=== PATIENT | female | born 1995 | race Caucasian/White ===

== ENCOUNTER → 2017-10-13 07:43 | Outpatient (CLI) | payer BC, MEDICAID, SELFPAY ==
--- NOTE | 2017-10-13 07:46 | US_ITS ---
US abdomen limited: HISTORY: ITS.REASON: UPPER ABD PAIN ORDERING PHYSICIAN: Temitope Fang PATIENT AGE: 22 years COMPARISON: FINDINGS: PANCREAS: Unremarkable. No obvious mass or abnormal fluid collection. No ductal dilatation LIVER: No focal liver lesions demonstrated. Homogeneous echogenicity. No intrahepatic biliary ductal dilatation evident RIGHT KIDNEY: Unremarkable. Normal size and echogenicity. No hydronephrosis GALLBLADDER: No gallstones, gallbladder wall thickening, pericholecystic fluid, or biliary dilatation. IMPRESSION: Negative gallbladder/right upper quadrant ultrasound
== END ==
PROVIDERS: Family Provider Family Medicine; PCP Family Medicine; Visit Provider Nurse Practitioner
DX: R10.9 Unspecified abdominal pain (principal)
CPT/HCPCS: 76705

== ENCOUNTER 2018-06-23 14:00 | Outpatient (RCR) | payer BC, MEDICAID, SELFPAY | END 2018-06-23 14:05 | disposition home or self-care (01) | LOC: PT 14:00 | PROVIDERS: Referring Provider Orthopaedic Surgery | DX: S72.012A Unspecified intracapsular fracture of left femur, initial encounter for closed fracture (principal) | CPT/HCPCS: 97010; 97014; 97016; 97110; 97112; 97163; 97597; G0283 ==

== ENCOUNTER → 2018-09-27 15:15 | Outpatient (CLI) | payer BC, MEDICAID, SELFPAY ==
[2018-09-27 16:24] LABS: Vancomycin,Trough 9.1 mcg/ml (10.0-20.0)
== END ==
PROVIDERS: Visit Provider Family Medicine
DX: Z48.89 Encounter for other specified surgical aftercare (principal); Z51.81 Encounter for therapeutic drug level monitoring
CPT/HCPCS: 80202

== ENCOUNTER → 2018-10-01 17:55 | Outpatient (CLI) | payer BC, MEDICAID, SELFPAY ==
[2018-10-01 18:18] LABS: Vancomycin,Trough 10.4 mcg/ml (10.0-20.0)
== END ==
PROVIDERS: Visit Provider Internal Medicine Infectious Disease
DX: Z48.89 Encounter for other specified surgical aftercare (principal); Z51.81 Encounter for therapeutic drug level monitoring
CPT/HCPCS: 80202

== ENCOUNTER → 2018-10-11 15:18 | Outpatient (CLI) | payer BC, MEDICAID, SELFPAY | PROVIDERS: PCP Internal Medicine Infectious Disease; Visit Provider Internal Medicine Infectious Disease | DX: Z51.81 Encounter for therapeutic drug level monitoring (principal) | CPT/HCPCS: 80202 ==

== ENCOUNTER → 2018-10-19 11:15 | Outpatient (CLI) | payer BC, MEDICAID, SELFPAY ==
[2018-10-19 12:08] LABS: Vancomycin,Trough 14.6 mcg/ml (10.0-20.0)
== END ==
PROVIDERS: Visit Provider Internal Medicine Infectious Disease
DX: Z48.89 Encounter for other specified surgical aftercare (principal); Z51.81 Encounter for therapeutic drug level monitoring
CPT/HCPCS: 80202

== ENCOUNTER → 2018-10-25 15:05 | Outpatient (CLI) | payer BC, MEDICAID, SELFPAY ==
[2018-10-25 15:39] LABS: Vancomycin,Trough 12.5 mcg/ml (10.0-20.0)
== END ==
PROVIDERS: Visit Provider Internal Medicine Infectious Disease
DX: Z48.89 Encounter for other specified surgical aftercare (principal); Z51.81 Encounter for therapeutic drug level monitoring
CPT/HCPCS: 80202

== ENCOUNTER 2019-01-04 08:30 | Outpatient (RCR) | payer BC, MEDICAID, SELFPAY | END 2019-01-04 08:35 | disposition home or self-care (01) | LOC: PT 08:30 | PROVIDERS: Visit Provider Orthopaedic Surgery Orthopaedic Trauma | DX: S72.90XA Unspecified fracture of unspecified femur, initial encounter for closed fracture (principal) | CPT/HCPCS: 97110; 97140; 97163 ==

== ENCOUNTER → 2020-08-09 12:17 | Outpatient (CLI) | payer BC, MEDICAID, SELFPAY ==
[2020-08-09 13:45] LABS: HCG,Quantitative 2327 mIU/ml (0-5.42)
== END ==
PROVIDERS: Visit Provider Obstetrics & Gynecology
DX: Z34.90 Encounter for supervision of normal pregnancy, unspecified, unspecified trimester (principal)
CPT/HCPCS: 36415; 84702

== ENCOUNTER → 2020-08-20 16:54 | Outpatient (CLI) | payer BC, MEDICAID, SELFPAY | PROVIDERS: Visit Provider Obstetrics & Gynecology | DX: Z34.90 Encounter for supervision of normal pregnancy, unspecified, unspecified trimester (principal) | CPT/HCPCS: 36415; 84702 ==

== ENCOUNTER → 2020-08-27 13:07 | Outpatient (CLI) | payer BC, MEDICAID, SELFPAY ==
--- NOTE | 2020-08-27 13:17 | US_ITS ---
PROCEDURE: US OB <= 14 WEEKS FETUS CLINICAL INDICATION: US OB Dates COMPARISON: US OBTV US OB transvaginal from 07/29/2018 FINDINGS: An intrauterine gestational sac is present with a pole with a crown-rump length of 1.45cm correlating to gestational age of 7weeks 6days. heart tones are present with an FHR of 153bpm. Yolk sac is noted. Right corpus luteum cyst noted at 2 cm. IMPRESSION: Live IUP at 7 weeks 6 days. Estimated due date by Ultrasound is 04/09/2021 Dictated by: Damaso Gooden MD 08/27/2020 15:28 Damaso Gooden MD in OV 08/27/2020 15:28
== END ==
PROVIDERS: PCP Internal Medicine Infectious Disease; Visit Provider Obstetrics & Gynecology
DX: O26.841 Uterine size-date discrepancy, first trimester (principal)
CPT/HCPCS: 76801

== ENCOUNTER → 2020-09-10 13:08 | Outpatient (CLI) | payer BC, MEDICAID, SELFPAY ==
[2020-09-10 14:31] LABS: Basophils % 0.3 % (0.1-2.0); Eosinophils # 0.1 K/mm3 (0.0-0.4); Eosinophils % 0.7 % (0.1-12.0); Hematocrit 38.4 % (37.0-47.0); Hemoglobin 12.7 g/dL (12.2-16.2); Lymphocytes # 1.5 K/mm3 (0.7-4.5); Lymphocytes % 14.4 % (10-50); Mean Corpuscular HGB Conc 33.1 g/dL (31.8-35.4); Mean Corpuscular Hemoglobin 30.8 pg (27.0-31.2); Mean Corpuscular Volume 92.9 fl (81-99); Mean Platelet Volume 8.2 fl (7.4-10.4); Monocytes # 0.3 K/mm3 (0.1-1.0); Monocytes % 3.2 % (1.7-9.3); Neutrophils # 8.7 K/mm3 (1.8-7.8); Neutrophils % 81.4 % (37.0-80.0); Platelet Count 320 K/mm3 (142-424); Red Blood Count 4.13 M/mm3 (4.20-5.40); Red Cell Distribution Width 12.6 % (11.5-17.5); White Blood Count 10.6 K/mm3 (4.8-10.8)
[2020-09-12 11:20] LABS: Hepatitis B Surface Antigen Negative (Negative); Hepatitis C Antibody >11.0 s/co ratio (0.0-0.9); Rubella Antibodies, IgG 2.05 index (Immune >0.99)
[2020-09-12 11:21] LABS: HIV Screen 4th Generation wRfx Non Reactive (Non Reactive)
[2020-09-12 12:36] LABS: Rapid Plasma Reagin Ab Titer Non Reactive (NonRea<1:1)
== END ==
PROVIDERS: Visit Provider Obstetrics & Gynecology
DX: Z34.90 Encounter for supervision of normal pregnancy, unspecified, unspecified trimester (principal)
CPT/HCPCS: 36415; 85025; 86592; 86703; 86762; 86850; 87340; 87380; G0432

== ENCOUNTER 2020-09-19 19:55 | Emergency (ER) | payer BC, MEDICAID, SELFPAY ==
[2020-09-19 20:27] VITALS: PULSE 65; RESP 18; O2SAT 98
[2020-09-19 20:34] VITALS: BP 0/0; PULSE 70; RESP 16; TEMP 36.8; O2SAT 98
--- NOTE | 2020-09-19 20:50 | HMH.EDUTC ---
[facility] [place] Disposition Clinical Impression: Upper respiratory infection Qualifiers: URI type: unspecified URI Qualified Code(s): J06.9 - Acute upper respiratory infection, unspecified Disposition: Home, Self-Care Condition on Discharge: Good Instructions: DI for Sinusitis-Child Additional Instructions: Drink plenty of fluids. Take tylenol or ibuprofen for pain or fever. Take the medications as directed. Follow up with your regular doctor. GO TO THE ER FOR ANY WORSENING SYMPTOMS Prescriptions: Brompheniramine/Pseudoephed/Dm [Bromfed Dm Cough Syrup] 5 ml PO Q6HP PRN #240 syrup PRN Reason: Cough Transmission Status: Received by [facility] Azithromycin [Z-Brandt 250mg Tab*] 250 mg PO UD DOSE PK #6 tab Transmission Status: Received by [facility] Referrals: Gavin Hoover MD [Primary Care Provider] - Time of Disposition: 20:51 Medical Decision Making - Medical Records Medical records reviewed: No: I reviewed the patient's medical records. - Jl Inquiry Pt receiving controlled substance: No Vital Signs: 09/19/20 20:27 09/19/20 20:34 Temperature 98.2 F Temperature Source Oral Pulse Rate 70 Pulse Rate [Right] 65 Respiratory Rate 18 16 Blood Pressure 0/0 L 02 Sat by Pulse Oximetry 98 Oxygen Delivery Method Room Air Room Air [facility] [place] HPI - General Stated complaint: Covid test Time Seen by Provider: 09/19/20 20:50 Mode of Arrival: Ambulatory Source of Information: Patient Limitations: No Limitations Description of Symptoms (Recalled from Triage Doc. by RN): runny nose and cough HEENT Symptoms (Recalled from RN notes): No Resp Symptoms (Recalled from RN notes): No Skin Symptoms (Recalled from RN notes): No MS Symptoms (Recalled from RN notes): No Functional Status (Recalled from RN notes): na - History of Present Illness Provider Complaint: She c/o nasal congestion and sinus congestion for the past 2 days. - Related Data Previous Rx's Medication Instructions Recorded ondansetron 4 mg disintegrating 4 mg PO Q4H PRN #30 tab 09/10/20 tablet vitamin-ferrous fumarate 1 tab PO DAILY #30 tab 09/10/20 28 mg iron-folic acid 800 mcg tablet Azithromycin [Z-Brandt 250mg Tab*] 250 mg PO UD DOSE PK #6 tab 09/19/20 Brompheniramine/Pseudoephed/Dm 5 ml PO Q6HP PRN #240 syrup 09/19/20 [Bromfed Dm Cough Syrup] Allergies Allergy/AdvReac Type Severity Reaction Status Date / Time lamotrigine [From Lamictal] Allergy Severe I-RASH Verified 09/10/20 11:04 ([facility]UTHANN[facility] SYNDROME) - Worker's Comp Is this a Worker's Comp case?: No H History - Hepatitis A Screen Drug use history?: No High risk sexual behaviors?: No History of sexually transmitted infection?: No Currently employed?: No Childcare worker?: No Do you have indoor plumbing?: Yes Do you have electricity?: Yes Attestation statement:: This patient has been screened for Hepatitis A risk factors. I have reviewed the patient's past medical history: Yes Laterality Cases: Bilateral: Tonsillectomy Amputation: No Fractures: Yes (compound fx RLE) Comment: left femur, bassam, X 3 - Social History Smoking Status: Current every day smoker # Packs/Day (cigarettes): 1 Alcohol Intake: never Substance Use Type: crack/cocaine, marijuana, IV drugs Occupational Status: unemployed Family Hx:: Diabetes, Heart Attack, Hypertension, Alcoholism ROS Obtained: Yes All systems reviewed & no additional complaints - Constitutional Constitutional: Denies chills, Denies fever(s) - Eyes Eyes: Denies eye discharge - ENT Ears, Nose, Mouth, and Throat: Reports as per HPI - Cardiovascular Cardiovascular: Denies chest pain - Respiratory Respiratory: Reports chest congestion, Reports cough, Denies dyspnea, Denies stridor, Denies wheezing Physical Exam - General General appearance: alert, in no apparent distress - Head Head exam: atraumatic, normocephalic, normal inspection - Eye Eye ex
== END 2020-09-19 20:54 | disposition home or self-care (01) ==
PROVIDERS: Emergency Provider Nurse Practitioner Family; PCP Family Medicine
DX: Z20.822 Contact with and (suspected) exposure to COVID-19 (principal); J06.9 Acute upper respiratory infection, unspecified; F17.210 Nicotine dependence, cigarettes, uncomplicated; F12.10 Cannabis abuse, uncomplicated; F15.10 Other stimulant abuse, uncomplicated; Z34.90 Encounter for supervision of normal pregnancy, unspecified, unspecified trimester
CPT/HCPCS: 99202; G0463; U0003

== ENCOUNTER → 2020-10-08 12:37 | Outpatient (CLI) | payer BC, MEDICAID, SELFPAY | PROVIDERS: Visit Provider Nurse Practitioner Family | DX: Z20.822 Contact with and (suspected) exposure to COVID-19 (principal) | CPT/HCPCS: U0003 ==

== ENCOUNTER 2021-04-17 17:50 | Emergency (ER) | payer BC, MEDICAID, SELFPAY ==
[2021-04-17 17:52] VITALS: BP 99/69; PULSE 125; RESP 18; TEMP 37.6; O2SAT 96; BMI 22.6
--- NOTE | 2021-04-17 18:05 | HMH.EDGENADL ---
ED Disposition Clinical Impression: Mastitis Disposition: Home, Self-Care Condition on Discharge: Good Additional Instructions: Continue to breast-feed and/or pump from your left breast. Cool compress for comfort. You may take Tylenol/Motrin as needed. Follow-up with your PCP or hardware assembler on Thursday to ensure you are improving. Referrals: Gavin Hoover MD [Primary Care Provider] - (Thursday) Time of Disposition: 18:10 - Critical Care Critical Care Time: No Attestation: On , the high probability of a clinically significant, sudden or life threatening deterioration of the following system(s) required my full and direct attention, intervention and personal management. The time I documented below is in addition to time spent performing reported procedures but includes the following listed in this critical care notation. Medical Decision Making - Medical Records Medical records reviewed: Yes: I reviewed the patient's medical records. - Jl Inquiry Pt receiving controlled substance: No Medical Decision Narrative: 26yo F evaluated for concerns for mastitis. Clinical exam is consistent with mastitis. Counseled patient to continue breast-feeding, apply cool compress. She can use Motrin and/or Tylenol for symptom relief. Encouraged to follow-up with PCP before the end of the week to ensure she is improving. General Adult HPI - General Stated complaint: possible mastitis L breast Time Seen by Provider: 04/17/21 18:06 Mode of Arrival: Ambulatory - History of Present Illness HPI narrative: 26yo F presents the emergency department with concern for mastitis of her left breast. Patient delivered approximately 1 month ago. She has been breast-feeding since delivery. Complains of erythema and pain. Notes that she has had a mild headache today as well as some cold chills but otherwise is in her usual state of health. Patient delivered vaginally. She reports her lochia continues to diminish. She denies any foul-smelling discharge. She denies any other systemic signs or symptoms of infection. - Related Data Previous Rx's Medication Instructions Recorded ondansetron 4 mg disintegrating 4 mg PO Q4H PRN #30 tab 09/10/20 tablet vitamin-ferrous fumarate 1 tab PO DAILY #30 tab 09/10/20 28 mg iron-folic acid 800 mcg tablet Allergies Allergy/AdvReac Type Severity Reaction Status Date / Time lamotrigine [From Lamictal] Allergy Severe I-RASH Verified 10/15/20 14:44 (CARMELLA RUTHANN'S SYNDROME) [facility] History - Hepatitis A Screen Drug use history?: No Attestation statement:: This patient has been screened for Hepatitis A risk factors. I have reviewed the patient's past medical history: Yes Medical History: Reports:: Depression Laterality Cases: Bilateral: Tonsillectomy Amputation: No Fractures: Yes (compound fx RLE) Comment: left femur, bassam, X 3 - Social History Smoking Status: Former smoker # Packs/Day (cigarettes): 1 Alcohol Intake: never Substance Use Type: crack/cocaine, marijuana, IV drugs Occupational Status: unemployed - Psychiatric History Pschychiatric History:: Reports:: Depression Family Hx:: Diabetes, Heart Attack, Hypertension, Alcoholism ROS Obtained: Yes All systems reviewed & no additional complaints - Integumentary/Breasts Skin/Breast: Reports as per HPI Physical Exam - General General appearance: alert, in no apparent distress - Head Head exam: atraumatic - Chest Chest inspection: Present: symmetric chest wall rise - Respiratory Respiratory exam: Absent: respiratory distress - Cardiovascular Cardiovascular exam: Present: regular rate, normal rhythm - Neurological Exam Neurological exam: Present: alert, oriented X3, CN II-XII intact, normal gait - Psychiatric Psychiatric exam: Present: normal affect, normal mood - Skin Skin exam: Present: warm, dry - Expanded Skin Exam Comment: Mild erythema of the upper inner quadrant. M
[2021-04-17 18:25] VITALS: BP 99/69; PULSE 125; RESP 18; TEMP 37.6; O2SAT 96
== END 2021-04-17 18:25 | disposition home or self-care (01) ==
LOC: ER 18:14
PROVIDERS: Emergency Provider Family Medicine; PCP Family Medicine
DX: N61.0 Mastitis without abscess (principal); F31.9 Bipolar disorder, unspecified
CPT/HCPCS: 99281

== ENCOUNTER 2021-09-26 14:38 | Emergency (ER) | payer BC, MEDICAID, SELFPAY ==
[2021-09-26 14:45] VITALS: BP 119/83; PULSE 101; RESP 18; TEMP 36.9; O2SAT 97; BMI 26.6
[2021-09-26 14:54] LABS: UTC Influenza A Antigen Positive (Negative)
[2021-09-26 14:55] LABS: UTC Influenza B Antigen Negative (Negative)
--- NOTE | 2021-09-26 15:06 | HMH.EDUTC ---
[facility] [place] Disposition Clinical Impression: Influenza Disposition: Home, Self-Care Condition on Discharge: Good Instructions: How to Avoid a Cold or Flu, Influenza, Ondansetron Additional Instructions: ? Too late to start Tamiflu. Most effective when started within 48 hours of symptoms onset ? Lots of rest ? Increase Fluids water, Gatorade, powerade, pedialyte,if /toddler/child ? Alternate Tylenol and / or ibuprofen as discussed for fever, aches, chills Follow up IMMEDIATELY with your family doctor for new or worsening Symptoms OR no noticeable improvement over the next 48-72 hours, 911 for difficulty or breathing ? You or your child area contagious until no fever, aches, chills for 24 hours with medication for symptoms ? Help Prevent the spread of influenza: ? Wash your hands often. Use soap and water. Wash your hands after you use the bathroom, change a child's diapers, or sneeze. Wash your hands before you prepare or eat food. Use gel hand cleanser that has 60% alcohol, when soap and water are not available. Do not touch your eyes, nose, or mouth unless you have washed your hands first. ? Cover your mouth when you sneeze or cough. Cough into a tissue or the bend of your arm. If you use a tissue, throw it away immediately and wash your hands. ? Clean shared items with a germ-killing grave cleaner. Clean table surfaces, doorknobs, and light switches. Do not share towels, silverware, and dishes with people who are sick. Wash bed sheets, towels, silverware, and dishes with soap and water. ? Wear a mask over your mouth and nose if you are sick. The face mask may help protect others from becoming infected with the flu. Wear the mask when in common areas of your home or if you seek care with a healthcare provider. ? Stay away from others if you are sick. Stay at home until 24 hours after your fever and symptoms are gone. Prescriptions: Ondansetron [Zofran 4mg ODT] 4 mg PO TIDP PRN #10 tab PRN Reason: Nausea Transmission Status: Pending to [facility] Referrals: Gavin Hoover MD [Primary Care Provider] - As needed Forms: Work/School Release Time of Disposition: 15:10 Medical Decision Making - Jl Inquiry Pt receiving controlled substance: No Jl was queried for this patient: No Vital Signs: 09/26/21 14:45 Temperature 98.4 F Temperature Source Oral Pulse Rate [Right Brachial] 101 H Respiratory Rate 18 Blood Pressure [Right Arm] 119/83 Blood Pressure Mean [Right Arm] 95 Blood Pressure Source [Right Arm] Automatic Cuff Blood Pressure Position [Right Arm] Sitting 02 Sat by Pulse Oximetry 97 Oxygen Delivery Method Room Air - Lab Data Lab results reviewed: Yes: I reviewed the patient's lab results. Lab Results 09/26/21 14:54: Influenza Type A Ag Positive A, Influenza Type B Ag Negative [facility] [place] HPI - General Stated complaint: fever,SOB,abd pains,vomiting,diarrhea Time Seen by Provider: 09/26/21 15:06 Mode of Arrival: Ambulatory Source of Information: Patient Limitations: No Limitations Description of Symptoms (Recalled from Triage Doc. by RN): PATIENT C/O COUGH, STOMACH ACHE, VOMITING, CHILLS AND SWEATS X 4 DAYS HEENT Symptoms (Recalled from RN notes): No Resp Symptoms (Recalled from RN notes): Yes Skin Symptoms (Recalled from RN notes): No MS Symptoms (Recalled from RN notes): No Functional Status (Recalled from RN notes): WNL - History of Present Illness Provider Complaint: Patient states that she has not felt well for about 4 days States that she has been having body aches, chills, N/V/D headache and over all not feeling well States that she feels like her bones are even cold and she cannot get warm so today when she was still feeling ill she came in - Related Data Previous Rx's Medication Instructions Recorded Ondansetron [Zofran 4mg ODT] 4 mg PO TIDP PRN #10 tab 09/26/21 Allergies Allergy/AdvReac Type Severity Reaction Status Date / Time lamotrigine [From Lamictal] Allergy Severe I
[2021-09-26 15:13] VITALS: BP 119/83; PULSE 101; RESP 18; TEMP 36.9; O2SAT 97
== END 2021-09-26 15:17 | disposition home or self-care (01) ==
PROVIDERS: Emergency Provider Nurse Practitioner; PCP Family Medicine
DX: J10.1 Influenza due to other identified influenza virus with other respiratory manifestations (principal)
CPT/HCPCS: 87804; 99212; G0463

== ENCOUNTER 2021-12-31 15:23 | Emergency (ER) | payer BC, MEDICAID, SELFPAY ==
--- NOTE | 2021-12-31 16:19 | HMH.EDUTC ---
[facility] [place] Disposition Clinical Impression: Viral syndrome, Exposure to COVID-19 virus Disposition: Home, Self-Care Condition on Discharge: Good Instructions: DI for Viral Syndrome, DI for COVID-19 (Suspected or Confirmed ), Preventing the Spread of Coronavirus Discharge Instructions Additional Instructions: Drink plenty of fluids. Take tylenol or ibuprofen for pain or fever. Take the medications as directed. Follow up with your regular doctor. GO TO THE ER FOR ANY WORSENING SYMPTOMS Quarantine until you know the results of your covid-19 test. Notify your school or workplace of your results and follow their instructions regarding return to work/school. Prescriptions: Brompheniramine/Pseudoephed/Dm [Bromfed Dm Cough Syrup] 5 ml PO Q6HP PRN #240 ml PRN Reason: Cough Transmission Status: Received by [facility] Ondansetron [Zofran 4mg ODT] 4 mg PO Q8HP PRN #12 tab PRN Reason: Nausea Transmission Status: Received by [facility] Azithromycin [Z-Brandt 250mg Tab*] 250 mg PO UD DOSE PK #6 tab Transmission Status: Received by [facility] Referrals: Gavin Hoover MD [Primary Care Provider] - Forms: Work/School Release Time of Disposition: 16:57 Medical Decision Making - Medical Records Medical records reviewed: No: I reviewed the patient's medical records. - Jl Inquiry Pt receiving controlled substance: No Vital Signs: 12/31/21 16:22 12/31/21 17:00 Temperature 98.3 F 98.3 F Temperature Source Oral Pulse Rate 80 Pulse Rate [Left] 80 Respiratory Rate 18 18 Blood Pressure 95/74 L Blood Pressure [Right Arm] 95/74 L Blood Pressure Mean [Right Arm] 81 02 Sat by Pulse Oximetry 100 - Lab Data Lab results reviewed: Yes: I reviewed the patient's lab results. Orders (Tests/Meds): ORDERS Category Date Time Status Covid-19 Nasal PCR ([facility]) Routine Lab 12/31/21 16:15 Received [facility] [place] HPI - General Stated complaint: cough,stomach Time Seen by Provider: 12/31/21 16:19 - History of Present Illness Provider Complaint: She c/o cough, sinus congestion, sore throat and low grade fever for the past 2 days. - Related Data Previous Rx's Medication Instructions Recorded Ondansetron [Zofran 4mg ODT] 4 mg PO TIDP PRN #10 tab 09/26/21 Azithromycin [Z-Brandt 250mg Tab*] 250 mg PO UD DOSE PK #6 tab 12/31/21 Brompheniramine/Pseudoephed/Dm 5 ml PO Q6HP PRN #240 ml 12/31/21 [Bromfed Dm Cough Syrup] Ondansetron [Zofran 4mg ODT] 4 mg PO Q8HP PRN #12 tab 12/31/21 Allergies Allergy/AdvReac Type Severity Reaction Status Date / Time lamotrigine [From Lamictal] Allergy Severe I-RASH Verified 12/31/21 16:24 (CARMELLA RUTHANN'[facility] SYNDROME) [facility] History - Hepatitis A Screen Attestation statement:: This patient has been screened for Hepatitis A risk factors. I have reviewed the patient's past medical history: Yes Medical History: Reports:: Depression Laterality Cases: Bilateral: Tonsillectomy Amputation: No Fractures: Yes (compound fx RLE) Comment: left femur, bassam, X 3 - Social History Smoking Status: Former smoker # Packs/Day (cigarettes): 1 Alcohol Intake: never Substance Use Type: crack/cocaine, marijuana, IV drugs Occupational Status: other - Psychiatric History Pschychiatric History:: Reports:: Depression Family Hx:: Diabetes, Heart Attack, Hypertension, Alcoholism ROS Obtained: Yes All systems reviewed & no additional complaints - Constitutional Constitutional: Reports as per HPI - Eyes Eyes: Denies eye discharge - ENT Ears, Nose, Mouth, and Throat: Reports as per HPI - Cardiovascular Cardiovascular: Denies chest pain - Respiratory Respiratory: Reports as per HPI Physical Exam - General General appearance: alert, in no apparent distress - Head Head exam: atraumatic, normocephalic, normal inspection - Eye Eye exam: Present: normal appearance, PERRL, EOMI - ENT ENT exam: Present: mucous m
[2021-12-31 16:22] VITALS: BP 95/74; PULSE 80; RESP 18; TEMP 36.8; O2SAT 100; BMI 27.4
[2021-12-31 17:00] VITALS: BP 95/74; PULSE 80; RESP 18; TEMP 36.8
== END 2021-12-31 17:01 | disposition home or self-care (01) ==
PROVIDERS: Emergency Provider Nurse Practitioner Family; PCP Family Medicine
DX: Z03.89 Encounter for observation for other suspected diseases and conditions ruled out; J02.9 Acute pharyngitis, unspecified; Z20.822 Contact with and (suspected) exposure to COVID-19; F32.A Depression, unspecified; Z88.8 Allergy status to other drugs, medicaments and biological substances; Z87.891 Personal history of nicotine dependence; Z82.49 Family history of ischemic heart disease and other diseases of the circulatory system; Z83.3 Family history of diabetes mellitus; Z81.1 Family history of alcohol abuse and dependence
CPT/HCPCS: 99213; C9803; G0463; U0003; U0005

== ENCOUNTER 2022-01-15 16:37 | Emergency (ER) | payer BC, MEDICAID, SELFPAY ==
[2022-01-15 16:51] VITALS: BP 102/72; PULSE 81; RESP 17; TEMP 36.9; O2SAT 98; BMI 25.9
--- NOTE | 2022-01-15 17:08 | HMH.EDUTC ---
[facility] [place] Clinical Impression: Encounter for laboratory testing for COVID-19 virus, Viral syndrome Disposition: Home, Self-Care Condition on Discharge: Good Instructions: DI for COVID-19 (Suspected or Confirmed ), Preventing the Spread of Coronavirus Discharge Instructions, DI for Fever (Symptom) -- Adult Additional Instructions: *Monitor Temp, Over the counter Motrin or Tylenol as directed/as needed Tylenol every 4 hours and Motrin every 6 hours (as long as your family doctor has told you that you can take it) for fever or pain. and straight to ER if unable to lower temp less than 101.0 after medication given *Warm salt water gargles may help to soothe the throat *Throat Lozenges *Warm fluids like tea with honey may help to soothe the throat *Sleep elevated *Humidifier/Vaporizer Follow up IMMEDIATELY for new or worsening symptoms or no Noticeable improvement over the next 48-72 hours. 911 for difficulty breathing or swallowing You were tested for today for COVID19 your test result should be back in the next 24-48 hours, you may check your Results on [facility] My Health Portal Make sure to take your Vitamins Vit. C Vit D and Zinc if you can take them Referrals: Gavin Hoover MD [Primary Care Provider] - As needed Forms: Work/School Release Medical Decision Making - Jl Inquiry Pt receiving controlled substance: No Jl was queried for this patient: No Vital Signs: 01/15/22 16:51 Temperature 98.4 F Temperature Source Oral Pulse Rate [Left] 81 Respiratory Rate 17 Blood Pressure [Right Arm] 102/72 L Blood Pressure Mean [Right Arm] 82 02 Sat by Pulse Oximetry 98 Orders (Tests/Meds): ORDERS Category Date Time Status Covid-19 Nasal PCR ([facility]) Routine Lab 01/15/22 16:28 Received [facility] [place] HPI - General Stated complaint: covid test, Time Seen by Provider: 01/15/22 17:08 Mode of Arrival: Ambulatory Source of Information: Patient Limitations: No Limitations Description of Symptoms (Recalled from Triage Doc. by RN): patient comes in for covid test. patient was exposed at work. symptoms include nausea, diarrhea, for two days. HEENT Symptoms (Recalled from RN notes): No Resp Symptoms (Recalled from RN notes): No Skin Symptoms (Recalled from RN notes): No MS Symptoms (Recalled from RN notes): No Functional Status (Recalled from RN notes): n/a - History of Present Illness Provider Complaint: Patient states that she wanted to get tested for COVID States that she was exposed at work and she hasnt felt well the last couple of days States that she has been having nausea, diarrhea and body aches - Related Data Previous Rx's Medication Instructions Recorded Ondansetron [Zofran 4mg ODT] 4 mg PO TIDP PRN #10 tab 09/26/21 Azithromycin [Z-Brandt 250mg Tab*] 250 mg PO UD DOSE PK #6 tab 12/31/21 Brompheniramine/Pseudoephed/Dm 5 ml PO Q6HP PRN #240 ml 12/31/21 [Bromfed Dm Cough Syrup] Ondansetron [Zofran 4mg ODT] 4 mg PO Q8HP PRN #12 tab 12/31/21 Allergies Allergy/AdvReac Type Severity Reaction Status Date / Time lamotrigine [From Lamictal] Allergy Severe I-RASH Verified 12/31/21 16:24 (CARMELLA RUTHANN'S SYNDROME) - Worker's Comp Is this a Worker's Comp case?: No [facility] History - Hepatitis A Screen Attestation statement:: This patient has been screened for Hepatitis A risk factors. I have reviewed the patient's past medical history: Yes Medical History: Reports:: Depression Laterality Cases: Bilateral: Tonsillectomy Amputation: No Fractures: Yes (compound fx RLE) Comment: left femur, bassam, X 3 - Social History Smoking Status: Former smoker # Packs/Day (cigarettes): 1 Alcohol Intake: never Substance Use Type: crack/cocaine, marijuana, IV drugs Occupational Status: other - Psychiatric History Pschychiatric History:: Reports:: Depression Family Hx:: Diabetes, Heart Attack, Hypertension, Alcoholism ROS Obtained: Yes All systems reviewed & no additional complai
[2022-01-15 17:25] VITALS: BP 102/72; PULSE 81; RESP 17; TEMP 36.9
== END 2022-01-15 17:26 | disposition home or self-care (01) ==
PROVIDERS: Emergency Provider Nurse Practitioner; PCP Family Medicine
DX: Z20.822 Contact with and (suspected) exposure to COVID-19 (principal); R11.0 Nausea; R19.7 Diarrhea, unspecified
CPT/HCPCS: 99212; C9803; G0463; U0003; U0005

== ENCOUNTER 2022-01-22 07:58 | Emergency (ER) | payer BC, MEDICAID, SELFPAY ==
[2022-01-22] VITALS (9 sets, daily range): BP systolic 100–124; BP diastolic 59–91; PULSE 57–84; RESP 16–18; TEMP 37.2; O2SAT 96–100; BMI 25.8
--- NOTE | 2022-01-22 08:04 | ECG_ITS ---
APPROVED REPORT Exam: Resting ECG HR:58 bpm ECG Measurements Heart Rate 58 AXES FL 174 P 55 QRSd 79 QRS 74 QT 387 T 44 QTc 383 Conclusion SINUS BRADYCARDIA BORDERLINE ECG UNCONFIRMED REPORT Electronically signed by : Arsen Villafana MD 01/22/2022 21:01:47
--- NOTE | 2022-01-22 08:06 | PC.NURSE ---
ER in room
--- NOTE | 2022-01-22 08:09 | XR_ITS ---
FINAL REPORT CLINICAL HISTORY: Syncope, SOA, CP @ sternum, tightness, cough x 2 days. FINDINGS: Two views of the chest were obtained. The heart size and pulmonary vascularity are within normal limits. The mediastinum is normal. No acute pulmonary abnormality is identified. There is no pneumothorax. The bony thorax is intact. IMPRESSION: No active cardiopulmonary disease. Reviewed, Interpreted and Dictated by Fer Diaz III, MD Transcribed by Harry Batres Authenticated and [facility]
--- NOTE | 2022-01-22 08:10 | PC.NURSE ---
IV established and blood sent to the lab
--- NOTE | 2022-01-22 08:15 | PC.NURSE ---
Orthostatic blood pressures done along with pulses
[2022-01-22 08:17] LABS: Basophils # 0.2 K/mm3 (0-0.2); Basophils % 3.5 % (0.1-2.0); Eosinophils # 0.3 K/mm3 (0.0-0.4); Eosinophils % 6.3 % (0.1-12.0); Hematocrit 47.3 % (37.0-47.0); Hemoglobin 14.8 g/dL (12.2-16.2); Lymphocytes # 1.6 K/mm3 (0.7-4.5); Lymphocytes % 31.7 % (10-50); Mean Corpuscular HGB Conc 31.4 g/dL (31.8-35.4); Mean Corpuscular Hemoglobin 30.3 pg (27.0-31.2); Mean Corpuscular Volume 96.7 fl (81-99); Monocytes # 0.6 K/mm3 (0.1-1.0); Neutrophils # 2.6 K/mm3 (1.8-7.8); Platelet Count 315 K/mm3 (142-424); Red Blood Count 4.89 M/mm3 (4.20-5.40); Red Cell Distribution Width 13.5 % (11.5-17.5); White Blood Count 5.1 K/mm3 (4.8-10.8)
--- NOTE | 2022-01-22 08:17 | PC.NURSE ---
pt ambulated to the restroom with no issue
[2022-01-22 08:21] LABS: Microscopic, Urine URINE MICROSCOPIC (MICROSCOPIC)
--- NOTE | 2022-01-22 08:22 | HMH.EDGENADL ---
ED Disposition Clinical Impression: COVID, Vasovagal syncope Disposition: Home, Self-Care Condition on Discharge: Good Instructions: DI for Syncope in Adults (Fainting), DI for Syncope in Children (Fainting) Referrals: Gavin Hoover MD [Primary Care Provider] - - Critical Care Critical Care Time: No Attestation: On 01/22/22, the high probability of a clinically significant, sudden or life threatening deterioration of the following system(s) required my full and direct attention, intervention and personal management. The time I documented below is in addition to time spent performing reported procedures but includes the following listed in this critical care notation. Medical Decision Making - Jl Inquiry Pt receiving controlled substance: No Vital Signs: 01/22/22 07:58 01/22/22 08:02 01/22/22 08:11 Temperature 98.9 F Temperature Source Oral Pulse Rate 81 84 Pulse Rate [Left Radial] 74 Pulse Rate [Orthostatic Lying Right] Pulse Rate [Orthostatic Standing] Respiratory Rate 18 Blood Pressure 124/90 107/76 L Blood Pressure [Orthostatic Lying Right Arm] Blood Pressure [Orthostatic Standing Right Arm] Blood Pressure [Right Arm] 124/90 Blood Pressure Mean 103 86 Blood Pressure Mean [Right Arm] 101 Blood Pressure Source [Right Arm] Automatic Cuff Blood Pressure Position [Right Arm] Sitting 02 Sat by Pulse Oximetry 97 99 98 Oxygen Delivery Method Room Air 01/22/22 08:12 01/22/22 08:14 01/22/22 08:30 Temperature Temperature Source Pulse Rate 81 68 Pulse Rate [Left Radial] Pulse Rate [Orthostatic Lying Right] 57 L Pulse Rate [Orthostatic Standing] 84 Respiratory Rate Blood Pressure 110/74 121/91 H Blood Pressure [Orthostatic Lying Right Arm] 107/76 L Blood Pressure [Orthostatic Standing Right Arm] 110/74 Blood Pressure [Right Arm] Blood Pressure Mean 81 100 Blood Pressure Mean [Right Arm] Blood Pressure Source [Right Arm] Blood Pressure Position [Right Arm] 02 Sat by Pulse Oximetry 97 96 Oxygen Delivery Method 01/22/22 08:51 01/22/22 09:07 Temperature Temperature Source Pulse Rate 62 62 Pulse Rate [Left Radial] Pulse Rate [Orthostatic Lying Right] Pulse Rate [Orthostatic Standing] Respiratory Rate 16 Blood Pressure 100/59 L 109/74 L Blood Pressure [Orthostatic Lying Right Arm] Blood Pressure [Orthostatic Standing Right Arm] Blood Pressure [Right Arm] Blood Pressure Mean 72 84 Blood Pressure Mean [Right Arm] Blood Pressure Source [Right Arm] Blood Pressure Position [Right Arm] 02 Sat by Pulse Oximetry 98 100 Oxygen Delivery Method - Lab Data Lab Results 01/22/22 08:09: WBC 5.1, RBC 4.89, Hgb 14.8, Hct 47.3 H, MCV 96.7, MCH 30.3, MCHC 31.4 L, RDW 13.5, Plt Count 315, MPV 9.0, Neut % (Auto) 51.0, Lymph % (Auto) 31.7, [place] % (Auto) 11.0 H, Eos % (Auto) 6.3, Baso % (Auto) 3.5 H, Neut # (Auto) 2.6, Lymph # (Auto) 1.6, [place] # (Auto) 0.6, Eos # (Auto) 0.3, Baso # (Auto) 0.2 01/22/22 08:09: Sodium 137, Potassium 3.6, Chloride 101, Carbon Dioxide 29, Anion Gap 10.6, BUN 10, Creatinine 0.80, Estimated Creat Clear 124, Estimated GFR 88, Est GFR ( Amer) 107, Glucose 83, Calcium 9.4, Total Bilirubin 0.3, AST 58 H, ALT 36, Alkaline Phosphatase 81, Troponin I < 0.01, Total Protein 7.3, Albumin 4.6, Globulin 2.7, Albumin/Globulin Ratio 1.7 01/22/22 08:09: Serum HCG, Qual Negative 01/22/22 08:16: Urine Color Yellow, Urine Appearance Clear, Urine pH 5.5, Ur Specific [place] >= 1.030, Urine Protein Negative, Urine Glucose (UA) Negative, Urine Ketones Negative, Urine Blood 2+, Urine Nitrate Negative, Urine Bilirubin 2+ A, Urine Urobilinogen 0.2, Ur Leukocyte Esterase Negative, Urine RBC None, Urine WBC 3-5, Ur Squamous Epith Cells 5-10, Urine Bacteria 1+ 01/22/22 08:18: SARS-CoV-2 (PCR) Detected A, Influenza A Untype (PCR) Not detected, Influenza Type B (PCR) Not detected Result diagrams: 01/22/22 08:09
--- NOTE | 2022-01-22 08:23 | PC.NURSE ---
covid swab obtained
[2022-01-22 08:25] LABS: Appearance,Urine CLEAR (Clear); Blood, Urine 2+ (Negative); Color,Urine YELLOW (Yellow); Glucose,Urine (UA) Negative (Negative); Ketones,Urine Negative (Negative); Leukocyte Esterase,Urine Negative (Negative); Nitrate,Urine Negative (Negative); PH,Urine 5.5 (5.0-8.5); Protein,Urine Negative (Negative); Specific Gravity, Urine >= 1.030 (1.005-1.030); Urobilinogen,Urine 0.2 EU/dl (0.2)
[2022-01-22 08:26] LABS: Chloride 101 mmol/L (98-107); Potassium 3.6 mmoL/L (3.5-5.1); Sodium 137 mmol/L (136-145)
[2022-01-22 08:28] LABS: Bilirubin,Urine 2+ (Negative)
--- NOTE | 2022-01-22 08:28 | PC.NURSE ---
notified rad of cxr, spoke with coby
[2022-01-22 08:29] LABS: Alanine Aminotransferase 36 U/L (12-78); Albumin Level 4.6 g/dl (3.5-5.0); Albumin/Globulin Ratio 1.7 (1.1-1.8); Alkaline Phosphatase 81 U/L (38-126); Anion Gap 10.6 mEq/L (5-15); Aspartate Amino Transferase 58 U/L (14-36); Bilirubin,Total 0.3 mg/dl (0.2-1.3); Blood Urea Nitrogen 10 mg/dl (7-17); Carbon Dioxide 29 mmol/L (22.0-30.0); Creatinine Clearance Estimated 124 mL/min (50-200); Estimated Glomerular Filt Rate 88 ml/min (>60); GFR (African American) 107 ML/MIN (>60); Globulin 2.7 g/dL (1.3-3.2); Total Protein,Serum 7.3 g/dl (6.3-8.2)
[2022-01-22 08:30] LABS: Influenza A, PCR Not Detected (NotDetected); Influenza B, PCR Not Detected (NotDetected)
[2022-01-22 08:30] LABS: Calcium 9.4 mg/dl (8.4-10.2); Glucose 83 mg/dl (74-100)
[2022-01-22 08:34] LABS: HCG Qualitative, Serum Negative (Negative)
--- NOTE | 2022-01-22 08:34 | PC.NURSE ---
pt given blanket with no other needs at this time
--- NOTE | 2022-01-22 08:36 | PC.NURSE ---
pt to radiology
--- NOTE | 2022-01-22 08:36 | PC.NURSE ---
pt to xr
[2022-01-22 08:37] LABS: Bacteria,Urine 1+ /lpf
--- NOTE | 2022-01-22 08:43 | PC.NURSE ---
pt returned from xr
[2022-01-22 08:44] LABS: Troponin I < 0.01 ng/ml (0.00-0.034)
[2022-01-22 09:01] LABS: Coronavirus 19, PCR Detected (NotDetected)
--- NOTE | 2022-01-22 09:26 | PC.NURSE ---
pt awaiting fluids to be finished for d/c
== END 2022-01-22 09:56 | disposition home or self-care (01) ==
PROVIDERS: Emergency Provider Student in an Organized Health Care Education/Training Program; PCP Family Medicine
DX: U07.1 COVID-19 (principal); R55 Syncope and collapse
CPT/HCPCS: 71046; 80053; 81001; 84484; 84703; 85025; 93005; 96360; 99284; C9803; U0003; U0005

== ENCOUNTER 2022-05-21 16:31 | Emergency (ER) | payer BC, SELFPAY ==
[2022-05-21 17:41] LABS: UTC Influenza A Antigen Negative (Negative)
[2022-05-21 17:42] LABS: UTC Influenza B Antigen Negative (Negative)
[2022-05-21 17:50] VITALS: BP 117/78; PULSE 109; RESP 19; TEMP 36.6; O2SAT 98; BMI 22.2
--- NOTE | 2022-05-21 18:06 | EXP.UTC ---
Discharge Plan Disposition Patient Disposition: Home, Self-Care Condition: Good Prescriptions Prescriptions: New ondansetron 4 mg tablet,disintegrating 4 mg PO Q8H PRN (Reason: nausea and vomiting) Qty: 10 0RF No Action ondansetron 4 MG tablet,disintegrating 4 mg PO TIDP PRN (Reason: Nausea) Qty: 10 0RF ondansetron 4 MG tablet,disintegrating 4 mg PO Q8HP PRN (Reason: Nausea) Qty: 12 0RF azithromycin 250 MG tablet 250 mg PO UD DOSE PK Qty: 6 0RF Rx Instructions: Take two (2) tablets today, then one (1) tablet days #2 thru #5 jgjmyplxxvdsldf-vdsfzozvo-FF 118 ML syrup 5 ml PO Q6HP PRN (Reason: Cough) Qty: 240 0RF Referrals Follow up/Referrals: Gavin Hoover MD [Primary Care Provider] - See instructions Activity Restrictions/Add. Instructions Additional Instructions/Restrictions: Drink extra fluids with and between meals. If you have difficulty drinking, try very small amounts of water or suck on ice chips. ? Avoid fruit juices, as these do not replace minerals and can actually increase diarrhea. ? Children and adults can use sports drinks to replenish electrolytes. Younger children and infants should use products formulated for children, like oral rehydration solutions. ? Eat food in small amounts and let your stomach recover. ? Get lots of rest. You may feel tired or weak. ? No greasy or fried foods for the next 24-48 hours BRAT diet Bananas Rice Apples and [place] ? Make sure to drink plenty of liquids ? Return if needed ? Straight to ER if any life threatening symptoms ? Zofran as prescribed ? Follow up with family doctor in the next 48-72 hours if no improvement or any worsening of symptoms Clinical Impressions Clinical Impression: Gastroenteritis Stand Alone Forms Stand Alone Forms: Work/School Release Instructions Patient Instructions: DI for Nausea -- Adult, Nausea and Vomiting-Adult Discharge ED Provider: Sue Roberts [facility] [place] General Stated complaint: sore throat,V&D Mode of Arrival: Ambulatory Source of Information: Patient Limitations: No Limitations Time Seen by Provider: 05/21/22 18:06 Description of Symptoms (Recalled from Triage Doc. by RN): PATIENT C/O NAUSEA, VOMITING, COUGH AND CONGESTION HEENT Symptoms (Recalled from RN notes): No Resp Symptoms (Recalled from RN notes): Yes Skin Symptoms (Recalled from RN notes): No MS Symptoms (Recalled from RN notes): No Functional Status (Recalled from RN notes): WNL History of Present Illness Provider Complaint: Patient states that she thinks she has a virus states that has been feeling achy and having body aches and chills and N/V State that she took her last zofran that she had at home and hasnt had anything for the nausea States that this evening she was still having nausea and worried that she may have the flu so she came in States that she wasnt able to work so she came in Related Data Previous Rx's Medication Instructions Recorded ondansetron 4 mg disintegrating 4 mg PO TIDP PRN Nausea #10 tabs 09/26/21 tablet azithromycin 250 mg tablet 250 mg PO UD DOSE PK #6 tabs 12/31/21 zztalyfyhqzthwo-zhadyrxquencdzy-KE 5 ml PO Q6HP PRN Cough #240 mL 12/31/21 2 mg-30 mg-10 mg/5 mL oral syrup ondansetron 4 mg disintegrating 4 mg PO Q8HP PRN Nausea #12 tabs 12/31/21 tablet ondansetron 4 mg disintegrating 4 mg PO Q8H PRN nausea and 05/21/22 tablet vomiting #10 tabs Allergies Allergy/AdvReac Type Severity Reaction Status Date / Time lamotrigine [From Lamictal] Allergy Severe I-RASH 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 Medical History (Updated 05/21/22 @ 18:13 by Sue Roberts APRN) Anxie
[2022-05-21 18:10] VITALS: BP 117/78; PULSE 109; RESP 19; TEMP 36.6; O2SAT 98
== END 2022-05-21 18:20 | disposition home or self-care (01) ==
PROVIDERS: Emergency Provider Nurse Practitioner; PCP Family Medicine
DX: K52.9 Noninfective gastroenteritis and colitis, unspecified (principal)
CPT/HCPCS: 87804; 99212; G0463

== ENCOUNTER 2022-06-17 11:15 | Emergency (ER) | payer BC, SELFPAY ==
--- NOTE | 2022-06-17 12:45 | EXP.UTC ---
Discharge Plan Disposition Patient Disposition: Home, Self-Care Condition: Good Prescriptions Prescriptions: New PNV no.089-wojx-nweym acid 28 mg iron- 800 mcg tablet 1 tab PO DAILY 30 Days Qty: 30 5RF No Action ondansetron 4 MG tablet,disintegrating 4 mg PO TIDP PRN (Reason: Nausea) Qty: 10 0RF ondansetron 4 MG tablet,disintegrating 4 mg PO Q8HP PRN (Reason: Nausea) Qty: 12 0RF azithromycin 250 MG tablet 250 mg PO UD DOSE PK Qty: 6 0RF Rx Instructions: Take two (2) tablets today, then one (1) tablet days #2 thru #5 pvysyrfovsxxebq-lfvatzjbj-IX 118 ML syrup 5 ml PO Q6HP PRN (Reason: Cough) Qty: 240 0RF ondansetron 4 mg tablet,disintegrating 4 mg PO Q8H PRN (Reason: nausea and vomiting) Qty: 10 0RF Referrals Follow up/Referrals: Gavin Hoover MD [Primary Care Provider] - See instructions Activity Restrictions/Add. Instructions Additional Instructions/Restrictions: Drink plenty of fluids. Take vitamins. I sent in a prescription, but you could buy them otc also. 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 GO TO THE ER FOR ANY WORSENING SYMPTOMS Clinical Impressions Clinical Impression: Stand Alone Forms Stand Alone Forms: Work/School Release Discharge ED Provider: Vineet Martinez [facility] General Stated complaint: Lightheaded, nausea Time Seen by Provider: 06/17/22 12:45 History of Present Illness Provider Complaint: She states that for the past 2 days she has had light headedness at time. She denies other complaints. Her period is 3 weeks late also. Related Data Previous Rx's Medication Instructions Recorded ondansetron 4 mg disintegrating 4 mg PO TIDP PRN Nausea #10 tabs 09/26/21 tablet azithromycin 250 mg tablet 250 mg PO UD DOSE PK #6 tabs 12/31/21 cjofedboxcffibs-rvcznzyvzlxrysw-HG 5 ml PO Q6HP PRN Cough #240 mL 12/31/21 2 mg-30 mg-10 mg/5 mL oral syrup ondansetron 4 mg disintegrating 4 mg PO Q8HP PRN Nausea #12 tabs 12/31/21 tablet ondansetron 4 mg disintegrating 4 mg PO Q8H PRN nausea and 05/21/22 tablet vomiting #10 tabs vitamins no.121-iron 28 1 tab PO DAILY 30 days #30 tabs 06/17/22 mg-folic acid 800 mcg tablet Allergies Allergy/AdvReac Type Severity Reaction Status Date / Time lamotrigine [From Lamictal] Allergy Severe I-RASH Verified 06/17/22 12:57 (CARMELLA RUTHANN'S SYNDROME) [facility] Disclaimer: The information contained in this section may have been updated after the patient was seen, as this information can be updated by other users. Medical History Anxiety Depression History of anemia Social History Smoking Status: Former smoker alcohol intake: never substance use type: marijuana, crack/cocaine and IV drugs current occupational status: other Travel in the last 8 weeks: None ROS Obtained: Yes All systems reviewed & no additional complaints except as documented Constitutional Constitutional: Denies chills and Denies fever(s) Eyes Eyes: Denies eye discharge ENT Ears, Nose, Mouth, and Throat: Reports dizziness, Denies otalgia and Denies sore throat Cardiovascular Cardiovascular: Denies chest pain Respiratory Respiratory: Denies shortness of breath, Denies chest congestion, Denies cough, Denies stridor and Denies wheezing Gastrointestinal Gastrointestingal: Denies nausea or vomiting Musculoskeletal Musculoskeletal: Reports system reviewed and no additional complaints, except as documented and Denies arthralgias Integumentary/Breasts Skin/Breast: Denies rash Neurologic Neurologic: Reports dizziness and Denies paresthesias Allergic/Immunologic Allergic/Immunologic: Denies wheezing Physical Exam General General appearance: alert and in no apparent distress Head Head exam: atraumatic, normocephalic and normal inspection Eye Eye exam: Pres
[2022-06-17 12:48] LABS: UTC Pregnancy Test, Urine Positive (Negative)
[2022-06-17 12:53] VITALS: BP 124/86; PULSE 72; RESP 19; TEMP 36.8; O2SAT 99; BMI 26.2
[2022-06-17 13:35] VITALS: BP 124/86; PULSE 72; RESP 19; TEMP 36.8
== END 2022-06-17 13:36 | disposition home or self-care (01) ==
LOC: ER 11:34 → UTC 11:34
PROVIDERS: Emergency Provider Nurse Practitioner Family; PCP Family Medicine
DX: R11.0 Nausea (principal); O26.91 Pregnancy related conditions, unspecified, first trimester
CPT/HCPCS: 81025; 99212; G0463

== ENCOUNTER 2022-07-05 13:21 | Emergency (ER) | payer BC, SELFPAY ==
--- NOTE | 2022-07-05 15:07 | PC.NURSE ---
pt was waiting to be seen by ed provider, pt was awaiting for room. registration called back to nurses station to let nurse know that pt was leaving without being seen.
[2022-07-05 15:08] VITALS: BP 0/0; PULSE 0; RESP 0; TEMP -17.7; TEMP 0
== END 2022-07-05 15:10 | disposition left against medical advice (07) ==
LOC: ER 14:09
PROVIDERS: Emergency Provider Emergency Medicine; PCP Family Medicine
DX: R10.9 Unspecified abdominal pain (principal)
CPT/HCPCS: 99211

== ENCOUNTER 2022-07-08 08:11 | Emergency (ER) | payer BC, SELFPAY ==
[2022-07-08 08:15] VITALS: BP 100/63; PULSE 73; RESP 20; TEMP 36.8; O2SAT 96; BMI 22.6
[2022-07-08 08:20] VITALS: BMI 22.6
--- NOTE | 2022-07-08 08:27 | US_ITS ---
FINAL REPORT CLINICAL HISTORY: pain, bleeding, LMP 6wk ago FINDINGS: PELVIC ULTRASOUND The uterus is anteverted and anteflexed. A gestational sac is present in the endometrial cavity. A pole is present measuring 18.4 mm corresponding to a gestation of 8 weeks 3 days. Cardiac activity is confirmed with a heart rate of 172 beats per minute. There is normal decidual reaction. The cervix is closed. Left ovary measures 3.7 x 5.4 x 3.0 cm. There is a 3.3 cm cyst with internal echoes in the left ovary that is likely a hemorrhagic corpus luteal cyst. The right ovary measures 1.6 x 2.9 x 1.7 cm and is unremarkable. There is blood flow demonstrated to both ovaries. IMPRESSION: Single intrauterine gestation of 8 weeks 3 days. Left ovarian cyst likely a hemorrhagic corpus luteal cyst. Reviewed, Interpreted and Dictated by Ene Reilly MD Transcribed by Harry Batres Authenticated and [facility]
[2022-07-08 08:29] LABS: Urine Pregnancy, HCG Qual. Positive (Negative)
[2022-07-08 08:32] LABS: Appearance,Urine SL CLOUDY (Clear); Bilirubin,Urine Negative (Negative); Blood, Urine 2+ (Negative); Color,Urine YELLOW (Yellow); Glucose,Urine (UA) Negative (Negative); Ketones,Urine Negative (Negative); Leukocyte Esterase,Urine 2+ (Negative); Microscopic, Urine URINE MICROSCOPIC (MICROSCOPIC); Nitrate,Urine Negative (Negative); Protein,Urine Negative (Negative); Urobilinogen,Urine 0.2 EU/dl (0.2)
[2022-07-08 08:52] LABS: Basophils % 0.7 % (0.1-2.0); Eosinophils # 0.3 K/mm3 (0.0-0.4); Hematocrit 35.8 % (37.0-47.0); Lymphocytes # 1.4 K/mm3 (0.7-4.5); Lymphocytes % 21.4 % (10-50); Mean Corpuscular HGB Conc 33.5 g/dL (31.8-35.4); Mean Corpuscular Hemoglobin 30.4 pg (27.0-31.2); Mean Corpuscular Volume 90.5 fl (81-99); Mean Platelet Volume 8.2 fl (7.4-10.4); Monocytes # 0.3 K/mm3 (0.1-1.0); Monocytes % 5.2 % (1.7-9.3); Neutrophils # 4.5 K/mm3 (1.8-7.8); Neutrophils % 68.8 % (37.0-80.0); Platelet Count 346 K/mm3 (142-424); Red Blood Count 3.95 M/mm3 (4.20-5.40); Red Cell Distribution Width 13.4 % (11.5-17.5); White Blood Count 6.5 K/mm3 (4.8-10.8)
[2022-07-08 08:58] LABS: Bacteria,Urine 1+ /lpf; RBC,Urine Occasional #/hpf (0-3)
[2022-07-08 09:02] LABS: Chloride 104 mmol/L (98-107); Sodium 136 mmol/L (136-145)
--- NOTE | 2022-07-08 09:02 | HMH.EDGENADL ---
Discharge Plan Disposition Patient Disposition: Home, Self-Care Condition: Good Prescriptions Prescriptions: New nitrofurantoin macrocrystal 100 mg capsule 100 mg PO BID 7 Days Qty: 14 0RF Rx Instructions: must administer with a meal/food prenat.vits,ignacia,dju-zmhp-vgqlq Tablet 1 tab PO DAILY Qty: 30 1RF No Action ondansetron 4 MG tablet,disintegrating 4 mg PO TIDP PRN (Reason: Nausea) Qty: 10 0RF ondansetron 4 MG tablet,disintegrating 4 mg PO Q8HP PRN (Reason: Nausea) Qty: 12 0RF azithromycin 250 MG tablet 250 mg PO UD DOSE PK Qty: 6 0RF Rx Instructions: Take two (2) tablets today, then one (1) tablet days #2 thru #5 ioecqgocpihbsli-mnxodzxlp-JP 118 ML syrup 5 ml PO Q6HP PRN (Reason: Cough) Qty: 240 0RF ondansetron 4 mg tablet,disintegrating 4 mg PO Q8H PRN (Reason: nausea and vomiting) Qty: 10 0RF PNV no.074-fvwh-zsiia acid 28 mg iron- 800 mcg tablet 1 tab PO DAILY 30 Days Qty: 30 5RF Referrals Follow up/Referrals: Gavin Hoover MD [Primary Care Provider] - See instructions Activity Restrictions/Add. Instructions Additional Instructions/Restrictions: You were evaluated in the emergency department today for vaginal bleeding affecting early . 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 Return to the emergency department for any new or worsening symptoms. Clinical Impressions Clinical Impression: Intrauterine , Vaginal bleeding affecting early , Cystitis Instructions Patient Instructions: DI for -- Discomforts and Remedies, DI for Vaginal Bleeding During , DI for Abdominal Pain -- Early Discharge ED Provider: Grace Villarreal General Adult HPI General Chief complaint: Abdominal Pain Stated complaint: approx 1 month , spotting and cramping Time Seen by Provider: 07/08/22 08:21 History of Present Illness HPI narrative: This patient is a 27-year-old G3, P2 presented to the emergency department for evaluation with concern for lower abdominal cramping/pain and vaginal bleeding that started today. Patient reports that she had her last menstrual period at the end of April, and she had multiple positive test around [place]. She states she has not followed up with anyone up to this point and has had no ultrasound. She states that she thought that she had a UTI and had some urinary symptoms over the last few days, but the vaginal bleeding is new. She describes it as light and being less than a period. She states that there is a very small amount on her underwear when she were to the bathroom and there was some bright red blood present when she wiped. She denies any fevers, chills, or other concerns. Related Data Previous Rx's Medication Instructions Recorded ondansetron 4 mg disintegrating 4 mg PO TIDP PRN Nausea #10 tabs 09/26/21 tablet azithromycin 250 mg tablet 250 mg PO UD DOSE PK #6 tabs 12/31/21 mztpqpoieddkevp-izlscaakwfiaugt-ZM 5 ml PO Q6HP PRN Cough #240 mL 12/31/21 2 mg-30 mg-10 mg/5 mL oral syrup ondansetron 4 mg disintegrating 4 mg PO Q8HP PRN Nausea #12 tabs 12/31/21 tablet ondansetron 4 mg disintegrating 4 mg PO Q8H PRN nausea and 05/21/22 tablet vomiting #10 tabs vitamins no.121-iron 28 1 tab PO DAILY 30 days #30 tabs 06/17/22 mg-folic acid 800 mcg tablet nitrofurantoin macrocrystal 100 mg 100 mg PO BID 7 days #14 caps 07/08/22 capsule prenat.vits,ignacia,zzi-anrj-sxbkf 1 tab PO DAILY #30 tabs 07/08/22 Allergies Allergy/AdvReac Type Severity Reaction Status Date / Time lamotrigine [From Lamictal] Allergy Severe I-RASH Verified 06/17/22 12:57 (CARMELLA RUTHANN'S SYNDROME) [facility] Disclaimer: The information contained in this section may have been updated after the patient was seen, as this informat
[2022-07-08 09:04] LABS: Blood Urea Nitrogen 9 mg/dl (7-17); Creatinine Clearance Estimated 144 mL/min (50-200); Estimated Glomerular Filt Rate 122 ml/min (>60); GFR (African American) 147 ML/MIN (>60)
[2022-07-08 09:05] LABS: Alanine Aminotransferase 13 U/L (12-78); Albumin Level 4.1 g/dl (3.5-5.0); Albumin/Globulin Ratio 1.4 (1.1-1.8); Alkaline Phosphatase 50 U/L (38-126); Aspartate Amino Transferase 24 U/L (14-36); Bilirubin,Total 0.4 mg/dl (0.2-1.3); Calcium 8.8 mg/dl (8.4-10.2); Carbon Dioxide 24 mmol/L (22.0-30.0); Glucose 73 mg/dl (74-100); Total Protein,Serum 7.1 g/dl (6.3-8.2)
--- NOTE | 2022-07-08 09:36 | PC.NURSE ---
pt back from [place]
[2022-07-08 09:52] LABS: HCG,Quantitative 99082 mIU/ml (0-5.42)
[2022-07-08 10:06] VITALS: BP 100/61; PULSE 90; RESP 18; O2SAT 99
[2022-07-08 10:34] VITALS: BP 110/70; PULSE 87; RESP 20; TEMP 36.8; O2SAT 98
== END 2022-07-08 10:53 | disposition home or self-care (01) ==
PROVIDERS: Emergency Provider Emergency Medicine; PCP Family Medicine
DX: O46.8X1 Other antepartum hemorrhage, first trimester (principal); O23.591 Infection of other part of genital tract in pregnancy, first trimester; N10 Acute pyelonephritis; Z3A.08 8 weeks gestation of pregnancy
CPT/HCPCS: 36415; 76817; 80053; 81001; 81025; 84702; 85025; 86850; 87086; 99285

== ENCOUNTER 2022-07-28 09:01 | Emergency (ER) | payer BC, SELFPAY ==
[2022-07-28 09:40] VITALS: BP 117/65; PULSE 76; RESP 20; TEMP 36.8; O2SAT 100; BMI 22.6
--- NOTE | 2022-07-28 09:51 | EXP.UTC ---
Discharge Plan Disposition Patient Disposition: Home, Self-Care Condition: Good Prescriptions Prescriptions: New promethazine 25 mg Tablet 25 mg PO Q6H PRN (Reason: Nausea And Vomiting) Qty: 30 0RF No Action prenat.vits,ignacia,laf-wcrb-bapdv Tablet 1 tab PO DAILY Referrals Follow up/Referrals: Gavin Hoover MD [Primary Care Provider] - See instructions Activity Restrictions/Add. Instructions Additional Instructions/Restrictions: Drink plenty of fluids. Take tylenol or ibuprofen for pain or fever. Take the medications as directed. Follow up with your regular doctor. GO TO THE ER FOR ANY WORSENING SYMPTOMS Clinical Impressions Clinical Impression: Gastroenteritis Stand Alone Forms Stand Alone Forms: Work/School Release Instructions Patient Instructions: DI for Viral Gastroenteritis -- Adult Discharge ED Provider: Vineet Martinez [facility] [place] General Stated complaint: Vomiting, fever Time Seen by Provider: 07/28/22 09:51 History of Present Illness Provider Complaint: She states that for the past 1 day she has had n/v/d. Related Data Home Medications Medication Instructions Recorded Confirmed prenat.vits,ignacia,gvk-olur-komba 1 tab PO DAILY vitamins 07/28/22 07/28/22 Previous Rx's Medication Instructions Recorded promethazine 25 mg tablet 25 mg PO Q6H PRN Nausea And 07/28/22 Vomiting #30 tabs Allergies Allergy/AdvReac Type Severity Reaction Status Date / Time lamotrigine [From Lamictal] Allergy Severe I-RASH Verified 07/28/22 09:58 (CARMELLA RUTHANN'S SYNDROME) [facility] Disclaimer: The information contained in this section may have been updated after the patient was seen, as this information can be updated by other users. Medical History Anxiety Depression History of anemia Social History Smoking Status: Never smoker alcohol intake: never substance use type: marijuana, crack/cocaine and IV drugs current occupational status: other Travel in the last 8 weeks: None ROS Obtained: Yes All systems reviewed & no additional complaints except as documented Constitutional Constitutional: Denies chills, Denies fever(s) and Reports poor appetite ENT Ears, Nose, Mouth, and Throat: Denies dizziness and Denies sore throat Cardiovascular Cardiovascular: Denies dyspnea Respiratory Respiratory: Denies chest congestion, Denies cough and Denies dyspnea Gastrointestinal Gastrointestingal: Reports as per HPI; Denies abdominal pain Genitourinary Female Genitourinary: Denies difficulty voiding, Denies dysuria, Denies hematuria, Denies urinary frequency, Denies urinary incontinence, Denies urinary hesitancy and Denies urinary urgency Musculoskeletal Musculoskeletal: Denies arthralgias Integumentary/Breasts Skin/Breast: Denies rash Neurologic Neurologic: Denies dizziness Physical Exam General General appearance: alert and in no apparent distress Head Head exam: atraumatic and normocephalic Eye Eye exam: Present normal appearance, PERRL and EOMI ENT ENT exam: Present normal exam, normal oropharynx, mucous membranes moist, TM's normal bilaterally and normal external ear exam Neck Neck exam: Present normal inspection, full ROM and trachea midline; Absent tenderness, meningismus or lymphadenopathy Chest Chest inspection: Present normal inspection and symmetric chest wall rise; Absent tenderness, rash or abscess Respiratory Respiratory exam: Present normal lung sounds bilaterally; Absent respiratory distress, wheezes or stridor Cardiovascular Cardiovascular exam: Present regular rate and normal rhythm; Absent irregular rhythm, systolic murmur, diastolic murmur or JVD Abdominal Exam Abdominal exam: Present soft and normal bowel sounds; Absent distention, tenderness, guarding, rebound, rigidity, psoas sign, obturator sign, heel tap sign, Manzanares's sign, Rovsi
[2022-07-28 10:44] VITALS: BP 117/65; PULSE 76; RESP 20; TEMP 36.8; O2SAT 100
== END 2022-07-28 10:44 | disposition home or self-care (01) ==
PROVIDERS: Emergency Provider Nurse Practitioner Family; PCP Family Medicine
DX: K52.9 Noninfective gastroenteritis and colitis, unspecified (principal)
CPT/HCPCS: 99212; 99213; G0463

== ENCOUNTER → 2022-10-21 06:58 | Outpatient (CLI) | payer BC, SELFPAY ==
[2022-10-21 07:37] LABS: Basophils # 0.1 K/mm3 (0-0.2); Eosinophils # 0.3 K/mm3 (0.0-0.4); Eosinophils % 5.3 % (0.1-12.0); Hematocrit 40.9 % (37.0-47.0); Hemoglobin 13.5 g/dL (12.2-16.2); Lymphocytes # 1.6 K/mm3 (0.7-4.5); Lymphocytes % 27.6 % (10-50); Mean Corpuscular HGB Conc 32.9 g/dL (31.8-35.4); Mean Corpuscular Hemoglobin 30.3 pg (27.0-31.2); Mean Corpuscular Volume 92.1 fl (81-99); Mean Platelet Volume 8.2 fl (7.4-10.4); Monocytes # 0.4 K/mm3 (0.1-1.0); Monocytes % 6.6 % (1.7-9.3); Neutrophils # 3.5 K/mm3 (1.8-7.8); Neutrophils % 59.5 % (37.0-80.0); Platelet Count 365 K/mm3 (142-424); Red Blood Count 4.44 M/mm3 (4.20-5.40); Red Cell Distribution Width 13.1 % (11.5-17.5); White Blood Count 5.8 K/mm3 (4.8-10.8)
[2022-10-21 07:43] LABS: INR 0.98 (0.9-1.1); Prothrombin Time 10.6 seconds (10.1-12.5)
[2022-10-21 08:16] LABS: Chloride 101 mmol/L (98-107); Sodium 138 mmol/L (136-145)
[2022-10-21 08:17] LABS: Potassium 4.3 mmoL/L (3.5-5.1)
[2022-10-21 08:19] LABS: Alanine Aminotransferase 16 U/L (12-78); Albumin Level 4.3 g/dl (3.5-5.0); Albumin/Globulin Ratio 1.8 (1.1-1.8); Alkaline Phosphatase 49 U/L (38-126); Anion Gap 17.3 mEq/L (5-15); Aspartate Amino Transferase 23 U/L (14-36); Bilirubin,Total 0.5 mg/dl (0.2-1.3); Blood Urea Nitrogen 13 mg/dl (7-17); Carbon Dioxide 24 mmol/L (22.0-30.0); Estimated Glomerular Filt Rate 102 ml/min (>60); GFR (African American) 123 ML/MIN (>60); Globulin 2.4 g/dL (1.3-3.2); Total Protein,Serum 6.7 g/dl (6.3-8.2)
[2022-10-21 08:20] LABS: Calcium 9.1 mg/dl (8.4-10.2); Glucose 80 mg/dl (74-100)
[2022-10-22 13:51] LABS: HIV Screen 4th Generation wRfx Non Reactive (Non Reactive)
[2022-11-08 17:25] LABS: Alpha 2-Macroglobulins, Qn 212; Fibrosis Score 0.02; Necroinflammat Activity Score 0.04
[2022-11-08 17:26] LABS: ALT (SGPT) P5P 17; Apolipoprotein A-1 143; Bilirubin, Total <0.1; GGT 10; Haptoglobin 126
[2022-11-08 17:28] LABS: Hep A Ab, Total Negative; Hep B Core Ab, Total Negative; Hep B Surface Ab, Qual Negative; Hepatitis B Surface Antigen Reactive
[2022-11-08 17:29] LABS: Hepatitis C Antibody Reactive
== END ==
PROVIDERS: PCP Nurse Practitioner Family; Visit Provider Nurse Practitioner Family
DX: R76.8 Other specified abnormal immunological findings in serum (principal); B19.20 Unspecified viral hepatitis C without hepatic coma; F19.20 Other psychoactive substance dependence, uncomplicated; F60.3 Borderline personality disorder; Z11.4 Encounter for screening for human immunodeficiency virus [HIV]
CPT/HCPCS: 36415; 80053; 81596; 85025; 85610; 86703; 86704; 86706; 86708; 87340; 87380; 87522; G0432

== ENCOUNTER → 2022-12-11 23:32 | Outpatient (CLI) | payer BC, SELFPAY ==
[2022-12-11 19:25] LABS: Amphetamine/Metha Screen,Urine Negative ng/ml (<1000); Benzodiazepines Screen,Urine Negative ng/ml (<200)
[2022-12-11 19:26] LABS: Barbiturates Screen,Urine Negative ng/ml (<200)
[2022-12-11 19:27] LABS: Cannabinoid Screen,Urine Negative ng/ml (<50); Cocaine Screen,Urine Negative ng/ml (<300)
[2022-12-11 19:28] LABS: Methadone Screen,Urine Negative ng/ml (<300)
[2022-12-11 19:29] LABS: Opiate Screen,Urine Negative ng/ml (<300); Phencyclidine Screen,Urine Negative ng/ml (<25)
== END ==
PROVIDERS: PCP Nurse Practitioner Family; Visit Provider Nurse Practitioner Family
DX: Z79.899 Other long term (current) drug therapy (principal)
CPT/HCPCS: 80305

== ENCOUNTER 2022-12-17 08:57 | Emergency (ER) | payer BC, MEDICAID, SELFPAY ==
[2022-12-17 09:05] VITALS: BP 124/84; PULSE 86; RESP 18; TEMP 36.9; O2SAT 100; BMI 25.2
--- NOTE | 2022-12-17 09:13 | EXP.UTC ---
Discharge Plan Disposition Patient Disposition: Home, Self-Care Condition: Good Prescriptions Prescriptions: New ondansetron 4 mg tablet,disintegrating 4 mg PO Q8H PRN (Reason: nausea and vomiting) Qty: 10 0RF No Action Nexplanon 68 mg implant 68 mg subdermal ONCE dextroamphetamine-amphetamine [Adderall XR] 10 mg capsule,extended release 24hr 10 mg PO DAILY Vraylar 3 mg capsule 3 mg PO DAILY Label Comments: TAKE ONE CAPSULE BY MOUTH EVERY DAY Referrals Follow up/Referrals: Eric Shields APRN [Primary Care Provider] - See instructions Activity Restrictions/Add. Instructions Additional Instructions/Restrictions: Drink extra fluids with and between meals. If you have difficulty drinking, try very small amounts of water or suck on ice chips. ? Avoid fruit juices, as these do not replace minerals and can actually increase diarrhea. ? Children and adults can use sports drinks to replenish electrolytes. Younger children and infants should use products formulated for children, like oral rehydration solutions. ? Eat food in small amounts and let your stomach recover. ? Get lots of rest. You may feel tired or weak. ? No greasy or fried foods for the next 24-48 hours BRAT diet Bananas Rice Apples and [place] ? Make sure to drink plenty of liquids ? Return if needed ? Straight to ER if any life threatening symptoms ? Zofran as prescribed ? Follow up with family doctor in the next 48-72 hours if no improvement or any worsening of symptoms Clinical Impressions Clinical Impression: Nausea vomiting and diarrhea Stand Alone Forms Stand Alone Forms: Work/School Release Instructions Patient Instructions: Nausea and Vomiting-Adult, Diarrhea Discharge ED Provider: Sue Roberts [facility] [place] General Stated complaint: Vomiting Mode of Arrival: Ambulatory Source of Information: Patient Limitations: No Limitations Time Seen by Provider: 12/17/22 09:13 Description of Symptoms (Recalled from Triage Doc. by RN): PATIENT C/O VOMITING LAST NIGHT AND THIS MORNING AND SOME LIGHT-HEADEDNESS. REPORTS BEING EXPOSED TO HAND, FOOT AND MOUTH HEENT Symptoms (Recalled from RN notes): No Resp Symptoms (Recalled from RN notes): No Skin Symptoms (Recalled from RN notes): No MS Symptoms (Recalled from RN notes): No Functional Status (Recalled from RN notes): WNL History of Present Illness Provider Complaint: Patient states that she started last night feeling queasy' States that she has had some diarrhea with N/V States that she vomited last night and twice today and having some nausea at work States that her daughter has hand foot and mouth and they was worried that she may have it or something at work so they sent her home and told her to come here States that she isnt broke out anywhere just having some N/V/D that started last night Related Data Home Medications Medication Instructions Recorded Confirmed etonogestrel 68 mg subdermal 68 mg subdermal ONCE control 10/08/22 12/17/22 implant (Nexplanon) cariprazine 3 mg capsule (Vraylar) 3 mg PO DAILY Depression 12/17/22 12/17/22 dextroamphetamine-amphetamine ER 10 mg PO DAILY ADHD 12/17/22 12/17/22 10 mg 24hr capsule,extend release (Adderall XR) Previous Rx's Medication Instructions Recorded ondansetron 4 mg disintegrating 4 mg PO Q8H PRN nausea and 12/17/22 tablet vomiting #10 tabs Allergies Allergy/AdvReac Type Severity Reaction Status Date / Time lamotrigine [From Lamictal] Allergy Severe I-RASH Verified 12/11/22 15:49 (CARMELLA RUTHANN'S SYNDROME) Worker's Comp Is this a Worker's Comp case?: No [facility] Disclaimer: The information contained in this section may have been updated after the patient was seen, as this information can be updated by other users. Medical History (Updated 12/17/22 @ 09:26 by Sue Roberts APRN) Anxiety COVID
[2022-12-17 09:20] VITALS: BP 124/84; PULSE 86; RESP 18; TEMP 36.9; O2SAT 100
== END 2022-12-17 09:32 | disposition home or self-care (01) ==
PROVIDERS: Emergency Provider Nurse Practitioner; PCP Nurse Practitioner Family
DX: R11.2 Nausea with vomiting, unspecified (principal); R19.7 Diarrhea, unspecified; F41.9 Anxiety disorder, unspecified; F17.200 Nicotine dependence, unspecified, uncomplicated
CPT/HCPCS: 99212; 99214; G0463

== ENCOUNTER 2023-01-12 10:37 | Emergency (ER) | payer BC, MEDICAID, SELFPAY ==
[2023-01-12 10:38] VITALS: BP 114/70; PULSE 86; RESP 16; TEMP 36.8; O2SAT 98; BMI 22.6
[2023-01-12 11:02] LABS: UTC Strep Screen (Rapid) Negative (Negative)
--- NOTE | 2023-01-12 11:16 | EXP.UTC ---
Discharge Plan Disposition Patient Disposition: Home, Self-Care Condition: Good Prescriptions Prescriptions: New utfizunokvzjyke-dvjaackgb-QJ [Bromfed DM] 2-30-10 mg/5 mL Syrup 5 ml PO Q6H PRN (Reason: Cough) Qty: 240 0RF ondansetron 4 mg Tablet,Disintegrating 4 mg PO Q8H PRN (Reason: Nausea) Qty: 12 0RF amoxicillin [amoxicillin] 500 mg tablet 500 mg PO TID 10 Days Qty: 30 0RF No Action Nexplanon 68 mg implant 68 mg subdermal ONCE dextroamphetamine-amphetamine [Adderall XR] 10 mg capsule,extended release 24hr 10 mg PO DAILY Vraylar 3 mg capsule 3 mg PO DAILY Patient Comments: TAKE ONE CAPSULE BY MOUTH EVERY DAY ondansetron 4 mg tablet,disintegrating 4 mg PO Q8H PRN (Reason: nausea and vomiting) Qty: 10 0RF Referrals Follow up/Referrals: Eric Shields APRN [Primary Care Provider] - See instructions Activity Restrictions/Add. Instructions Additional Instructions/Restrictions: Drink plenty of fluids. Take tylenol or ibuprofen for pain or fever. Take the medications as directed. Follow up with your regular doctor. GO TO THE ER FOR ANY WORSENING SYMPTOMS Clinical Impressions Clinical Impression: Pharyngitis Stand Alone Forms Stand Alone Forms: Work/School Release Instructions Patient Instructions: DI for Pharyngitis/Tonsillopharyngitis -- Adult Discharge ED Provider: Vineet Martinez [facility] General Stated complaint: vomiting,stomach pain,sore throat Mode of Arrival: Ambulatory Source of Information: Patient Limitations: No Limitations Time Seen by Provider: 01/12/23 11:16 Description of Symptoms (Recalled from Triage Doc. by RN): Patient reports vomiting, stomach pain and sore throat since last night. HEENT Symptoms (Recalled from RN notes): Yes Resp Symptoms (Recalled from RN notes): No Skin Symptoms (Recalled from RN notes): No MS Symptoms (Recalled from RN notes): No Functional Status (Recalled from RN notes): wnl History of Present Illness Provider Complaint: She reports that for the past 24 hours she has had sore throat, nausea/vomiting and malaise. Related Data Home Medications Medication Instructions Recorded Confirmed etonogestrel 68 mg subdermal 68 mg subdermal ONCE control 10/08/22 12/17/22 implant (Nexplanon) cariprazine 3 mg capsule (Vraylar) 3 mg PO DAILY Depression 12/17/22 12/17/22 dextroamphetamine-amphetamine ER 10 mg PO DAILY ADHD 12/17/22 12/17/22 10 mg 24hr capsule,extend release (Adderall XR) Previous Rx's Medication Instructions Recorded ondansetron 4 mg disintegrating 4 mg PO Q8H PRN nausea and 12/17/22 tablet vomiting #10 tabs amoxicillin 500 mg tablet 500 mg PO TID 10 days #30 tabs 01/12/23 gyqtjxzjidkndic-stzyjqytgycqyng-VH 5 ml PO Q6H PRN Cough #240 mL 01/12/23 2 mg-30 mg-10 mg/5 mL oral syrup (Bromfed DM) ondansetron 4 mg disintegrating 4 mg PO Q8H PRN Nausea #12 tabs 01/12/23 tablet Allergies Allergy/AdvReac Type Severity Reaction Status Date / Time lamotrigine [From Lamictal] Allergy Severe I-RASH Verified 12/11/22 15:49 (CARMELLA RUTHANN'S SYNDROME) Worker's Comp Is this a Worker's Comp case?: No [facility] Disclaimer: The information contained in this section may have been updated after the patient was seen, as this information can be updated by other users. Medical History (Updated 01/12/23 @ 11:21 by Vineet Martinez APRN) Anxiety COVID Cystitis Encounter for initial prescription of Nexplanon Encounter for laboratory testing for COVID-19 virus Encounter for postoperative wound check Establishing care with new doctor, encounter for Exposure to COVID-19 virus Gastroenteritis Hepatitis C antibody test positive History of anemia History of intravenous drug abuse Influenza Intrauterine Mastitis Positive urine drug screen Upper respiratory infection Vaginal bleeding affecting early Vapes nicotine containing substance
[2023-01-12 11:22] VITALS: BP 114/70; PULSE 86; RESP 16; TEMP 36.8; O2SAT 98
== END 2023-01-12 11:24 | disposition home or self-care (01) ==
PROVIDERS: Emergency Provider Nurse Practitioner Family; PCP Nurse Practitioner Family
DX: J02.9 Acute pharyngitis, unspecified (principal); R11.2 Nausea with vomiting, unspecified; R53.81 Other malaise; F17.290 Nicotine dependence, other tobacco product, uncomplicated; F41.9 Anxiety disorder, unspecified
CPT/HCPCS: 87880; 99212; 99214; G0463

== ENCOUNTER 2023-02-17 08:08 | Emergency (ER) | payer MEDICAID, SELFPAY ==
[2023-02-17 08:30] VITALS: BP 120/66; PULSE 76; RESP 19; TEMP 36.7; O2SAT 98; BMI 26.6
[2023-02-17 08:44] LABS: UTC Influenza A Antigen Negative (Negative); UTC Strep Screen (Rapid) Negative (Negative)
[2023-02-17 08:45] LABS: UTC Influenza B Antigen Negative (Negative)
--- NOTE | 2023-02-17 09:01 | EXP.UTC ---
Discharge Plan Disposition Patient Disposition: Home, Self-Care Condition: Good Prescriptions Prescriptions: New ondansetron 4 mg tablet,disintegrating 4 mg PO Q8H PRN (Reason: nausea and vomiting) Qty: 10 0RF No Action Nexplanon 68 mg implant 68 mg subdermal ONCE Referrals Follow up/Referrals: Gavin Hoover MD [Primary Care Provider] - See instructions Activity Restrictions/Add. Instructions Additional Instructions/Restrictions: *Monitor Temp, Over the counter Motrin or Tylenol as directed/as needed Tylenol every 4 hours and Motrin every 6 hours (as long as your family doctor has told you that you can take it) for fever or pain. and straight to ER if unable to lower temp less than 101.0 after medication given *Warm salt water gargles may help to soothe the throat *Throat Lozenges? *Warm fluids like tea with honey may help to soothe the throat? *Sleep elevated *Humidifier/Vaporizer Your throat swab was sent for culture. Those results are typically sent to your primary care. Be sure to follow up in 2-3 days with your family doctor/primary care physician if no improvement so they can review those result and treat if necessary. If you don?t have a primary care doctor, I recommend you get one but in the mean time, you will have to return to a walk in clinic Follow up IMMEDIATELY for new or worsening symptoms or no Noticeable improvement over the next 48-72 hours. 911 for difficulty breathing or swallowing You were tested for today for COVID19 your test result should be back in the next 24-48 hours, you may check your results on the [facility] [employer] [facility] Clinical Impressions Clinical Impression: Viral syndrome Stand Alone Forms Stand Alone Forms: Work/School Release Instructions Patient Instructions: DI for COVID-19 (Suspected or Confirmed ), Preventing the Spread of Coronavirus Discharge Instructions, DI for Viral Syndrome Discharge ED Provider: Sue Roberts [facility] [place] HPI General Stated complaint: vomiting,diarrhea,sore throat,congestion Mode of Arrival: Ambulatory Source of Information: Patient Limitations: No Limitations Time Seen by Provider: 02/17/23 09:01 Description of Symptoms (Recalled from Triage Doc. by RN): PATIENT C/O VOMITING, DIARRHEA, SORE THROAT AND HEADACHE SINCE THURSDAY HEENT Symptoms (Recalled from RN notes): Yes Resp Symptoms (Recalled from RN notes): No Skin Symptoms (Recalled from RN notes): No MS Symptoms (Recalled from RN notes): No Functional Status (Recalled from RN notes): WNL History of Present Illness Provider Complaint: Patient states that yesterday she started having body aches, chills, headache, N/V and feeling achy all over States that today she is having chills and not feeling any better states that she was around her brother that recently tested positive for COVID so today when she was still not feeling well she came in to get tested Related Data Home Medications Medication Instructions Recorded Confirmed etonogestrel 68 mg subdermal 68 mg subdermal ONCE control 10/08/22 02/17/23 implant (Nexplanon) Previous Rx's Medication Instructions Recorded ondansetron 4 mg disintegrating 4 mg PO Q8H PRN nausea and 02/17/23 tablet vomiting #10 tabs Allergies Allergy/AdvReac Type Severity Reaction Status Date / Time lamotrigine [From Lamictal] Allergy Severe I-RASH Verified 12/11/22 15:49 (CARMELLA RUTHANN'S SYNDROME) Worker's Comp Is this a Worker's Comp case?: No [facility] Disclaimer: The information contained in this section may have been updated after the patient was seen, as this information can be updated by other users. Medical History (Updated 02/17/23 @ 09:05 by Sue Roberts APRN) Anxiety COVID Cystitis Encounter for initial prescription of Nexplanon Encounter for laboratory testing for COVID-19 virus Encounter for postoperative wound check Establishing care with new doc
[2023-02-17 09:07] VITALS: BP 120/66; PULSE 76; RESP 19; TEMP 36.7; O2SAT 98
== END 2023-02-17 09:09 | disposition home or self-care (01) ==
PROVIDERS: Emergency Provider Nurse Practitioner; PCP Family Medicine
DX: R11.2 Nausea with vomiting, unspecified (principal); R51.9 Headache, unspecified; F17.200 Nicotine dependence, unspecified, uncomplicated; F41.9 Anxiety disorder, unspecified
CPT/HCPCS: 87804; 87880; 99212; 99214; G0463

== ENCOUNTER 2023-08-04 07:06 | Emergency (ER) | payer MEDICAID, SELFPAY ==
[2023-08-04 07:08] VITALS: BP 128/95; PULSE 107; RESP 16; TEMP 36.9; O2SAT 97; BMI 25.8
[2023-08-04 07:13] VITALS: BP 128/95; PULSE 122; O2SAT 97
--- NOTE | 2023-08-04 07:16 | XR_ITS ---
FINAL REPORT CLINICAL HISTORY: fall, left ankle pain, pt has foot drop unable to flex foot back COMPARISON: None FINDINGS: LEFT ANKLE: Three views of the left ankle were obtained. There is no acute fracture or dislocation. The joint spaces and mortise are intact. There is lateral soft tissue swelling. IMPRESSION: Lateral soft tissue swelling without acute bony abnormality. Reviewed, Interpreted and Dictated by Fer Diaz III, MD Transcribed by Janis Marie Authenticated and [facility]
--- NOTE | 2023-08-04 07:16 | XR_ITS ---
FINAL REPORT CLINICAL HISTORY: fall, left lower leg pain COMPARISON: None FINDINGS: 2 views left tibia/fibula were obtained. There are post operative changes in the distal femur. There is no acute fracture or dislocation. The joint spaces are intact. There is no soft tissue abnormality. IMPRESSION: No acute bony abnormality. Reviewed, Interpreted and Dictated by Fer Diaz III, MD Transcribed by Janis Marie Authenticated and [facility]
--- NOTE | 2023-08-04 07:16 | XR_ITS ---
FINAL REPORT CLINICAL HISTORY: fall, left foot pain COMPARISON: None FINDINGS: LEFT FOOT: Three views of the left foot were obtained. There is no acute fracture or dislocation. The joint spaces are intact. There is no soft tissue abnormality. IMPRESSION: No acute bony abnormality. Reviewed, Interpreted and Dictated by Fer Diaz III, MD Transcribed by Janis Marie Authenticated and [facility]
--- NOTE | 2023-08-04 07:18 | HMH.EDGENADL ---
Discharge Plan Disposition Patient Disposition: Home, Self-Care Condition: Good Prescriptions Prescriptions: New lidocaine 5 % adhesive patch,medicated 1 patch topical DAILY PRN (Reason: for pain) Qty: 5 0RF Rx Instructions: leave on most painful area for up to 12 hrs No Action lamotrigine [Lamictal ODT Starter ([place])] 25 mg(14)-50 mg (14)-100 mg (7) tablet disintegrating, dose pk See Rx Instructions PO PER PKG DIR Qty: 35 0RF Rx Instructions: PO PER PKG DIR Nexplanon 68 mg implant 68 mg subdermal ONCE ondansetron 4 mg tablet,disintegrating 4 mg PO Q8H PRN (Reason: nausea and vomiting) Qty: 10 0RF Referrals Follow up/Referrals: Eric Shields APRN [Primary Care Provider] - See instructions Activity Restrictions/Add. Instructions Additional Instructions/Restrictions: You have been evaluated in the ED for your complaints. You may follow-up with your PCP in the next 3 to 5 days. Please return to ED for any new or worsening symptoms. As discussed, you may follow-up with your orthopedic surgeon as needed. Please take ibuprofen and Tylenol as needed for pain. I recommend 800 mg of ibuprofen every 5-6 hours as needed. Weightbearing as tolerated. Clinical Impressions Clinical Impression: Left ankle sprain Instructions Patient Instructions: DI for Ankle Sprain Discharge ED Provider: Isai Nice Adult HPI General Chief complaint: Extremity Injury, Lower Stated complaint: AO fell, inj to left foot Time Seen by Provider: 08/04/23 07:11 Mode of Arrival: Ambulatory Source of Information: Patient Limitations: No Limitations Description of Symptoms (Recalled from ER Triage Doc. by RN): Patient reports falling down the stairs last night and injuring her left ankle. Says she heard it pop . Since the the ankle has been swollen and painful. History of Present Illness HPI narrative: 28-year-old female with past medical history significant for left foot drop, anxiety, ADHD, bipolar disorder, presents today for evaluation concerning left ankle injury that occurred last night. Patient states that she was coming downstairs when she accidentally fell and injured her ankle, noting that she heard a popping sensation 3 times and experienced immediate swelling. States that she usually uses a brace secondary to a left lower extremity injury and 2018 resulting in her foot drop. She has been using Tylenol and ibuprofen to assist with pain with minimal relief. Denies any other associated injuries. No further complaints. Related Data Home Medications Medication Instructions Recorded Confirmed etonogestrel 68 mg subdermal 68 mg subdermal ONCE control 10/08/22 05/06/23 implant (Nexplanon) Previous Rx's Medication Instructions Recorded ondansetron 4 mg disintegrating 4 mg PO Q8H PRN nausea and 02/17/23 tablet vomiting #10 tabs lamotrigine 25 mg(14)-50 See Rx Instructions PO PER PKG DIR 05/06/23 mg(14)-100 mg(7) #35 ea tablet,disintegrating, pack (Lamictal ODT Starter([place])) lidocaine 5 % topical patch 1 patch topical DAILY PRN for pain 08/04/23 #5 ea Allergies Allergy/AdvReac Type Severity Reaction Status Date / Time lamotrigine [From Lamictal] Allergy Severe I-RASH Verified 05/06/23 13:59 (CARMELLA RUTHANN'S SYNDROME) [facility] Disclaimer: The information contained in this section may have been updated after the patient was seen, as this information can be updated by other users. Medical History (Updated 08/04/23 @ 08:32 by Isai Nice DO) Anxiety COVID Cystitis Encounter for initial prescription of Nexplanon Encounter for laboratory testing for COVID-19 virus Encounter for postoperative wound check Establishing care with new doctor, encounter for Exposure to COVID-19 virus Gastroenteritis Hepatitis C antibody test positive History of anemia History of intravenous drug abuse Influenza Intrauterine Mastitis Positive urine drug screen Upper respiratory infection Vaginal bleeding affecting early Vapes nicotine containing substance Vasovagal syncope Viral syndrome Surgical History Hx of tonsillectomy S/P ORIF (open reduction internal fixation) fracture Family History Other No significant family history Social History Smoking Status: Current every day smoker years smoked: 11 alcohol intake: current substance use type: marijuana, crack/cocaine and IV drugs current occupational status: employed Travel in the last 8 weeks: None ROS Obtained: Yes All systems reviewed & no additional complaints except as documented Physical Exam General General appearance: alert and in no apparent distress Head Head exam: atraumatic and normocephalic Eye Eye exam: Present normal appearance, PERRL and EOMI ENT ENT exam: Present normal oropharynx and mucous membranes moist Neck Neck exam: Present full ROM; Absent meningismus Respiratory Respiratory exam: Absent respiratory distress, wheezes, stridor or accessory muscle use Cardiovascular Cardiovascular exam: Present normal rhythm Abdominal Exam Abdominal exam: Present soft; Absent distention, tenderness, guarding, rebound or rigidity Extremities Exam Extremities exam: Present tenderness, normal capillary refill, edema and other (Tenderness to palpation of the lateral and medial malleolus. Mild swelling around the ankle. Tenderness palpation along the distal aspect of the tip/fib.); Absent calf tenderness Neurological Exam Neurological exam: Present alert, oriented X3 and CN II-XII intact; Absent motor sensory deficit Psychiatric Psychiatric exam: Present normal affect and normal mood Skin Skin exam: Present warm and dry Medical Decision Making Medical Records Medical records reviewed: Yes I reviewed the patient's medical records. Jl Inquiry Pt receiving controlled substance: No Jl was queried for this patient: No Vital Signs: 08/04/23 07:08 08/04/23 07:13 Temperature 98.5 F Temperature Source Oral Pulse Rate 122 H Pulse Rate [Radial] 107 H Respiratory Rate 16 Blood Pressure 128/95 H Blood Pressure [Right Arm] 128/95 H Blood Pressure Mean [Right Arm] 106 Blood Pressure Source [Right Arm] Automatic Cuff Blood Pressure Position [Right Arm] Sitting 02 Sat by Pulse Oximetry 97 97 Oxygen Delivery Method Room Air Room Air Orders (Tests/Meds): ED MEDICATIONS Generic Name Dose Route Start Last Admin Trade Name Freq PRN Reason Stop Dose Admin Lidocaine 1 each 08/04/23 07:30 08/04/23 07:24 Lidocaine 5% Transdermal Patch TP 09/03/23 07:29 1 each Q24H RODOLFO Administration Discontinued Medications Generic Name Dose Route Start Last Admin Trade Name Freq PRN Reason Stop Dose Admin Ibuprofen 800 mg 08/04/23 07:17 08/04/23 07:25 Ibuprofen 400 Mg Tablet PO 08/04/23 07:18 800 mg ONCE ONE Administration ORDERS Category Date Time Status Fibula/tibia XR left 2 views [XR tibia fibula LT 2V] Exams 08/04/23 07:16 Completed Stat XR ankle LT min 3V Stat Exams 08/04/23 07:16 Completed XR foot LT min 3V Stat Exams 08/04/23 07:16 Completed Medical Decision Narrative: 28-year-old female with past medical history significant for left foot drop, anxiety, ADHD, bipolar disorder, presents today for evaluation concerning left ankle injury that occurred last night. Patient states that she was coming downstairs when she accidentally fell and injured her ankle, noting that she heard a popping sensation 3 times and experienced immediate swelling. On assessment, the patient was hemodynamically stable and in no acute distress. Physical exam was remarkable for tenderness palpation over the lateral and medial malleoli with mild swelling around the ankle. There is also tenderness around the distal aspect of the tip/fib. Other physical exam findings were unremarkable. Differential diagnoses include but not limited to fracture, dislocation, sprain, among others. X-ray imaging of the left foot, ankle and tib-fib were ordered to further assess for any abnormalities. On my personal interpretation there were no acute bony abnormalities noted. Radiology report confirmed. On reassessment patient micaela medically stable in no acute distress. Discussed ED workup results. She states that her pain at this time is much improved. She is able to stand and ambulate. I provided her with return ED precautions and instructions pain control at home. She has an orthopedic surgeon that she will contact for follow-up if needed. Provided with return ED precautions. She verbalized understanding and agreement with plan. Subsequently discharged home in medically stable and in no acute distress. Critical Care Critical Care Time Critical Care Time: No
[2023-08-04] MEDS: LIDOCAINE 5% TRANSDERMAL PATCH 1 EACH TP (07:24)
[2023-08-04] MEDS: IBUPROFEN 400 MG TABLET 800 MG PO (07:25)
[2023-08-04 08:33] VITALS: BP 123/90; PULSE 89; RESP 16; TEMP 36.4
== END 2023-08-04 08:35 | disposition home or self-care (01) ==
PROVIDERS: Emergency Provider Emergency Medicine; PCP Nurse Practitioner Family
DX: S93.402A Sprain of unspecified ligament of left ankle, initial encounter (principal); F17.210 Nicotine dependence, cigarettes, uncomplicated; W10.8XXA Fall (on) (from) other stairs and steps, initial encounter
CPT/HCPCS: 73590; 73610; 73630; 99283

== ENCOUNTER 2024-11-21 14:12 | Outpatient (CLI) | payer MEDICAID, SELFPAY ==
[2024-11-21 15:20] LABS: HCG,Quantitative < 2 mIU/ml (0-5.42)
[2024-11-22 08:13] LABS: Progesterone 0.1 ng/mL (.)
== END 2024-11-21 23:59 | disposition home or self-care (01) ==
LOC: LAB 14:14
PROVIDERS: Visit Provider Obstetrics & Gynecology
DX: Z32.01 Encounter for pregnancy test, result positive (principal)
CPT/HCPCS: 36415; 84144; 84702